=== PATIENT | female | born 1945 | race Two or more races ===

== ENCOUNTER 2020-09-07 22:48 | Inpatient (IN) | payer MEDICARE, MEDICAID ==
[~2020-09-07] VITALS: Ht 165.1 cm; Wt 80.0 kg
[~2020-09-07 22:48] MED LIST: ALBU8.5H8 INH; AMIO200T61 PO; AMIT25TA10 PO; APIX5TAB3 PO; ATOR40TA7 PO; BUDE10.22 INH; BUSP5TAB3 PO; CEPH-572 PO; DOCU100C41 PO; FLUT16SP26; FURO40TA4 PO; GABA-530 PO; HYDR-3965 PO; LACT1CAP26 PO; MELA10TA2 PO; MONT10TA21 PO; PANT-47 PO; POTA10TA21 PO; ROPI1TAB6 PO; ROPI3TAB PO
[2020-09-07 23:44] LABS: BASOPHILS % (AUTO) 0.5 % (0-1); EOSINOPHILS # (AUTO) 0.2 X10'3 (0-0.9); EOSINOPHILS % (AUTO) 2.3 % (0-6); HEMATOCRIT 33.2 % (35.0-45.0); HEMOGLOBIN 10.4 g/dl (12.0-16.0); LYMPHOCYTES # (AUTO) 1.6 X10'3 (1.1-4.8); LYMPHOCYTES % (AUTO) 23.5 % (21-51); MEAN CORPUSCULAR HEMOGLOBIN 23.8 PG (27.0-31.0); MEAN CORPUSCULAR HGB CONC 31.3 g/dL (33.0-36.5); MEAN CORPUSCULAR VOLUME 75.9 FL (78-98); MEAN PLATELET VOLUME 8.7 FL (7.4-10.4); MONOCYTES # (AUTO) 0.8 X10'3 (0-0.9); MONOCYTES % (AUTO) 11.8 % (2-12); NEUTROPHILS # (AUTO) 4.2 X10'3 (1.8-7.7); NEUTROPHILS % (AUTO) 61.9 % (42-75); PLATELET COUNT 218 X10'3 (140-440); RED BLOOD COUNT 4.37 X10'6 (4.20-5.60); RED CELL DISTRIBUTION WIDTH 19.7 % (11.5-14.5); WHITE BLOOD COUNT 6.8 X10'3 (4.5-11.0)
[2020-09-08 00:15] LABS: ALANINE AMINOTRANSFERASE 28 U/L (12-78); ALBUMIN 3.9 G/DL (3.4-5.0); ALKALINE PHOSPHATASE 98 IU/L (46-116); ANION GAP 12 (8-16); ASPARTATE AMINO TRANSFERASE 27 U/L (10-37); BILIRUBIN,TOTAL 0.3 MG/DL (0.1-1.0); BLOOD UREA NITROGEN 56 MG/DL (7-18); BUN/CREATININE RATIO 21.9 (6.6-38.0); CALCIUM 9.6 MG/DL (8.5-10.1); CHLORIDE 106 MMOL/L (99-107); CREATININE 2.56 MG/DL (0.40-0.90); GLUCOSE 121 MG/DL (70-104); POTASSIUM 3.9 MMOL/L (3.5-5.1); SODIUM 142 MMOL/L (135-145); TOTAL CARBON DIOXIDE 24.1 MMOL/L (24-32); TOTAL PROTEIN 7.8 G/DL (6.4-8.2); eGFR 18 ML/MIN
[2020-09-08 00:29] LABS: ANISOCYTOSIS 2+; ELLIPTOCYTES FEW; MICROCYTOSIS 1+; PLATELET ESTIMATE NORMAL; POLYCHROMASIA FEW
[2020-09-08] MEDS ORDERED: MONT10TA21 PO (00:41)
[2020-09-08] MEDS ORDERED: AMIT-189 PO (00:41)
[2020-09-08] MEDS ORDERED: POTA8CAP20 PO (00:41)
[2020-09-08] MEDS ORDERED: BUDE10.2 INH (00:41)
[2020-09-08] MEDS ORDERED: APIX2.5T PO (00:41)
[2020-09-08] MEDS ORDERED: SENN8.6T19 PO (00:41)
[2020-09-08] MEDS ORDERED: ATOR40TA PO (00:41)
[2020-09-08] MEDS ORDERED: ROPI1TAB6 PO (00:41)
[2020-09-08] MEDS ORDERED: ALBU8.5H8 IH (00:41)
[2020-09-08] MEDS ORDERED: FURO-149 PO (00:41)
[2020-09-08] MEDS ORDERED: MELA10TA2 PO (00:41)
[2020-09-08] MEDS ORDERED: PANT-47 PO (00:41)
[2020-09-08] MEDS ORDERED: BUSP5TAB3 PO (00:41)
[2020-09-08] MEDS ORDERED: IRBE150T51 PO (00:41)
[2020-09-08] MEDS ORDERED: AMIO200T61 PO (00:41)
[2020-09-08] MEDS ORDERED: CEPH250T PO (00:43)
[2020-09-08] MEDS ORDERED: potassium Cl 40MEQ/1/2NS 520ml 520 ML IV PRN ×2 (00:50)
[2020-09-08] MEDS ORDERED: magnesium hydroxide 30ml (MOM) UD suspension PO PRN (00:50)
[2020-09-08] MEDS ORDERED: magnesium 2GM in 50ml NS 50 ML IV PRN (00:50)
[2020-09-08] MEDS ORDERED: magnesium 4gm in 100ml NS 100 ML IV PRN (00:50)
[2020-09-08] MEDS ORDERED: magnesium Cl slow-release 64mg tablet PO PRN (00:50)
[2020-09-08] MEDS ORDERED: potassium Cl 20 mEq SR tablet PO PRN ×2 (00:50)
[2020-09-08] MEDS ORDERED: mag hydrox/Alum hydrox/simeth 30ml oral suspension PO PRN (00:50)
[2020-09-08] MEDS ORDERED: albuterol 2.5 MG/3 ML nebule NEB PRN (01:00)
[2020-09-08] MEDS: morphine 2 MG/ML inj. syringe IV PRN ×3 (01:26→18:00)
[2020-09-08] MEDS: ondansetron/PF 4mg/2ml inj IV PRN ×3 (01:27→18:35)
[2020-09-08 02:35] LABS: HEMOGLOBIN A1C 5.8 % (4.5-6.2)
[2020-09-08] MEDS: albuterol 2.5 MG/3 ML nebule NEB SCH ×4 (03:00→20:10)
[2020-09-08] MEDS ORDERED: nitroGLYCERIN 1gm ointment UD TP ONE (03:05)
[2020-09-08] MEDS: K and/or MAG REPLACEMENT MC SCH ×2 (07:30→20:00)
[2020-09-08] MEDS: budesonide 0.5mg/2ml UD nebule IH SCH ×2 (07:35→20:10)
[2020-09-08] MEDS: atorvastatin 20mg tablet PO SCH (07:44)
[2020-09-08] MEDS: pantoprazole 40mg Tablet.DR PO SCH (07:44)
[2020-09-08] MEDS: sennosides 8.6mg tablet PO SCH (07:45)
[2020-09-08] MEDS: losartan 50mg tablet PO SCH (07:45)
[2020-09-08] MEDS: ROPINIRole 1mg tablet PO SCH ×2 (07:45→21:12)
[2020-09-08] MEDS: montelukast 10mg tablet PO SCH (07:45)
[2020-09-08] MEDS: amiodarone 200mg tablet PO SCH (07:45)
[2020-09-08] MEDS: busPIRone 5mg tablet PO SCH ×2 (07:45→21:11)
[2020-09-08] MEDS: furosemide 40mg tablet PO SCH (07:45)
[2020-09-08] MEDS: cephalexin 250mg capsule PO SCH ×2 (07:46→21:12)
[2020-09-08] MEDS: acetaminophen 325mg tablet PO PRN ×2 (07:46→21:22)
[2020-09-08] MEDS ORDERED: heparin, porcine 5000 units/ml vial SQ SCH (08:00)
--- NOTE | 2020-09-08 09:50 | NUR ---
u/s at bedside for echo
[2020-09-08 19:41] VITALS: BP 106/55
[2020-09-08] MEDS: amitriptyline 50mg tablet PO SCH (21:11)
[2020-09-08] MEDS: lactobacillus rhamnosus 10,000 MMU CELLS/CAPSULE PO SCH (21:12)
[2020-09-08] MEDS: Melatonin 3mg tablet PO SCH (21:12)
[2020-09-08 22:00] VITALS: BP 97/47
--- NOTE | 2020-09-08 22:37 | NUR ---
PATIENT STATES THAT THEY DO NOT WANT TO GO OVER HER FULL ADMISSION/DART AT THIS TIME . SHE STATES SHE HAS A HEADACHE AND IS WANTING TO REST. TYLENOL TO BE GIVEN AND WILL RE TRY NEXT MORNING
[2020-09-09 02:00] VITALS: BP 97/47
[2020-09-09] MEDS: albuterol 2.5 MG/3 ML nebule NEB SCH ×4 (02:28→20:13)
--- NOTE | 2020-09-09 06:30 | NUR ---
Patient in room U 3026. I have received report from Vlad LAND and had the opportunity to ask questions and assume patient care. Patient resting in bed and in no acute distress.
[2020-09-09 06:33] LABS: BASOPHILS % (AUTO) 0.3 % (0-1); EOSINOPHILS # (AUTO) 0.1 X10'3 (0-0.9); EOSINOPHILS % (AUTO) 1.7 % (0-6); HEMATOCRIT 29.4 % (35.0-45.0); HEMOGLOBIN 9.5 g/dl (12.0-16.0); LYMPHOCYTES % (AUTO) 13.6 % (21-51); MEAN CORPUSCULAR HEMOGLOBIN 24.6 PG (27.0-31.0); MEAN CORPUSCULAR HGB CONC 32.4 g/dL (33.0-36.5); MEAN CORPUSCULAR VOLUME 75.9 FL (78-98); MEAN PLATELET VOLUME 8.8 FL (7.4-10.4); MONOCYTES # (AUTO) 0.7 X10'3 (0-0.9); MONOCYTES % (AUTO) 10.2 % (2-12); NEUTROPHILS # (AUTO) 5.3 X10'3 (1.8-7.7); NEUTROPHILS % (AUTO) 74.2 % (42-75); PLATELET COUNT 183 X10'3 (140-440); RED BLOOD COUNT 3.88 X10'6 (4.20-5.60); RED CELL DISTRIBUTION WIDTH 19.1 % (11.5-14.5); WHITE BLOOD COUNT 7.1 X10'3 (4.5-11.0)
[2020-09-09 07:00] VITALS: BP 112/44
[2020-09-09] MEDS: budesonide 0.5mg/2ml UD nebule IH SCH ×2 (07:04→20:13)
[2020-09-09 07:20] LABS: ALANINE AMINOTRANSFERASE 26 U/L (12-78); ALBUMIN 3.4 G/DL (3.4-5.0); ALBUMIN/GLOBULIN RATIO 0.9 (1.1-1.5); ALKALINE PHOSPHATASE 91 IU/L (46-116); ANION GAP 12 (8-16); ASPARTATE AMINO TRANSFERASE 21 U/L (10-37); BILIRUBIN,TOTAL 0.3 MG/DL (0.1-1.0); BLOOD UREA NITROGEN 60 MG/DL (7-18); BUN/CREATININE RATIO 23.1 (6.6-38.0); CALCIUM 9.1 MG/DL (8.5-10.1); CHLORIDE 106 MMOL/L (99-107); CHOL/HDL RATIO 2.4 (0.00-4.99); CHOLESTEROL 124 MG/DL (0-200); GLUCOSE 120 MG/DL (70-104); HDL CHOLESTEROL 52 MG/DL (35-60); LDL CHOLESTEROL 52 MG/DL (50-100); POTASSIUM 4.1 MMOL/L (3.5-5.1); SODIUM 141 MMOL/L (135-145); TOTAL CARBON DIOXIDE 22.9 MMOL/L (24-32); TOTAL PROTEIN 7.1 G/DL (6.4-8.2); TRIGLYCERIDES 152 MG/DL (20-135); eGFR 18 ML/MIN
[2020-09-09] MEDS: busPIRone 5mg tablet PO SCH ×2 (07:55→20:11)
[2020-09-09] MEDS: amiodarone 200mg tablet PO SCH (07:55)
[2020-09-09] MEDS: cephalexin 250mg capsule PO SCH ×2 (07:56→20:12)
[2020-09-09] MEDS: losartan 50mg tablet PO SCH (07:56)
[2020-09-09] MEDS: lactobacillus rhamnosus 10,000 MMU CELLS/CAPSULE PO SCH ×2 (07:56→20:11)
[2020-09-09] MEDS: ROPINIRole 1mg tablet PO SCH ×2 (07:57→20:11)
[2020-09-09] MEDS: ondansetron/PF 4mg/2ml inj IV PRN ×2 (07:57→18:52)
[2020-09-09] MEDS: atorvastatin 20mg tablet PO SCH (07:57)
[2020-09-09] MEDS: sennosides 8.6mg tablet PO SCH (07:57)
[2020-09-09] MEDS: furosemide 40mg tablet PO SCH (07:57)
[2020-09-09] MEDS: pantoprazole 40mg Tablet.DR PO SCH (07:57)
[2020-09-09] MEDS: montelukast 10mg tablet PO SCH (07:57)
[2020-09-09] MEDS: K and/or MAG REPLACEMENT MC SCH ×2 (08:00→20:00)
[2020-09-09] MEDS: morphine 2 MG/ML inj. syringe IV PRN ×4 (08:07→22:56)
[2020-09-09 09:41] LABS: PLATELET ESTIMATE NORMAL
[2020-09-09 09:42] LABS: ANISOCYTOSIS 2+; ELLIPTOCYTES 1+; LARGE PLATELETS FEW
[2020-09-09 09:43] LABS: MICROCYTOSIS 1+; POLYCHROMASIA 1+; TEAR DROP CELLS FEW
[2020-09-09 11:00] VITALS: BP 121/53
[2020-09-09] MEDS ORDERED: mag hydrox/Alum hydrox/simeth 30ml oral suspension PO PRN (12:10)
[2020-09-09] MEDS ORDERED: regadenoson 0.4mg/5ml syringe IV ONE (12:10)
[2020-09-09] MEDS ORDERED: aminophylline 250mg/10ml inj. IV PRN (12:10)
[2020-09-09] MEDS ORDERED: nitroGLYCERIN 0.4mg SUBLingual tab SL PRN (12:10)
[2020-09-09] MEDS ORDERED: metoprolol tartrate 1mg/ml inj IV PRN (12:10)
[2020-09-09] MEDS ORDERED: proCHLORperazine 10 MG/2 ml inj IV PRN (12:10)
[2020-09-09 15:00] VITALS: BP 100/62
[2020-09-09 18:00] VITALS: BP 112/50
--- NOTE | 2020-09-09 18:07 | NUR ---
Problems reprioritized. Patient report given, questions answered & plan of care reviewed with Vlad LAND.Patient alert, oriented, appropriaten and in no acute distress at this time.
--- NOTE | 2020-09-09 20:05 | NUR ---
PAGER ID: [phone] MESSAGE: [id number] THOMAS MAJOR , STATES LEG PAIN IS 10/10 MORPHINE HAS NOT RELIEVED PAIN. REQUESTED DILADID FOR RELIEVE AT THIS TIME PER PATIENT REQUEST. [id number] SHIRA LAND THANK YOU
--- NOTE | 2020-09-09 20:09 | NUR ---
SPOKE TO DR. BRIGGS IN REGARDS TO PAIN RELIEVE, STATES MORPHINE IS A BETTER CHOICE FOR RELIEVE AT THIS TIME IN REGARDS TO PATIENTS CARDIAC STATUS
[2020-09-09] MEDS: amitriptyline 50mg tablet PO SCH (21:16)
[2020-09-09] MEDS: acetaminophen 325mg tablet PO PRN (21:17)
[2020-09-09] MEDS: Melatonin 3mg tablet PO SCH (21:17)
[2020-09-09] MEDS ORDERED: GABA-530 PO (21:36)
[2020-09-09] MEDS ORDERED: HYDR-3965 PO (21:37)
--- NOTE | 2020-09-09 21:41 | NUR ---
PAGER ID: [phone] MESSAGE: [id number] THOMAS MAJOR . LEG PAIN SEEMS TO PRESIST I SPOKE TO DAUGHTER OF PATIENT, WHO IS THE VARNISH MIXER I WAS ABLE TO UPDATE THE MED REC . PATIENT TAKES BOTH GABAPENTIN AND NORCO FOR NEUROPATHY AND RESTLESS LEGS. SHIRA LAND 1350 THANKS
[2020-09-09 22:00] VITALS: BP 121/45
[2020-09-09] MEDS ORDERED: gabapentin 100mg capsule PO ONE (22:10)
[2020-09-10] VITALS (10 sets, daily range): BP systolic 94–117; BP diastolic 34–49
[2020-09-10] MEDS: albuterol 2.5 MG/3 ML nebule NEB SCH ×3 (03:23→15:43)
[2020-09-10 06:14] LABS: BASOPHILS % (AUTO) 0.4 % (0-1); EOSINOPHILS # (AUTO) 0.2 X10'3 (0-0.9); EOSINOPHILS % (AUTO) 2.6 % (0-6); HEMOGLOBIN 9.5 g/dl (12.0-16.0); LYMPHOCYTES # (AUTO) 0.8 X10'3 (1.1-4.8); MEAN CORPUSCULAR HEMOGLOBIN 24.2 PG (27.0-31.0); MEAN CORPUSCULAR HGB CONC 31.5 g/dL (33.0-36.5); MEAN CORPUSCULAR VOLUME 76.9 FL (78-98); MEAN PLATELET VOLUME 8.7 FL (7.4-10.4); MONOCYTES # (AUTO) 0.6 X10'3 (0-0.9); MONOCYTES % (AUTO) 9.8 % (2-12); NEUTROPHILS # (AUTO) 4.7 X10'3 (1.8-7.7); NEUTROPHILS % (AUTO) 75.2 % (42-75); PLATELET COUNT 157 X10'3 (140-440); RED BLOOD COUNT 3.91 X10'6 (4.20-5.60); RED CELL DISTRIBUTION WIDTH 19.5 % (11.5-14.5); WHITE BLOOD COUNT 6.3 X10'3 (4.5-11.0)
[2020-09-10 06:29] LABS: ALANINE AMINOTRANSFERASE 45 U/L (12-78); ALBUMIN 3.3 G/DL (3.4-5.0); ALBUMIN/GLOBULIN RATIO 0.9 (1.1-1.5); ALKALINE PHOSPHATASE 114 IU/L (46-116); ANION GAP 12 (8-16); ASPARTATE AMINO TRANSFERASE 67 U/L (10-37); BILIRUBIN,TOTAL 0.3 MG/DL (0.1-1.0); BLOOD UREA NITROGEN 57 MG/DL (7-18); BUN/CREATININE RATIO 21.8 (6.6-38.0); CALCIUM 9.1 MG/DL (8.5-10.1); CHLORIDE 105 MMOL/L (99-107); CREATININE 2.62 MG/DL (0.40-0.90); GLUCOSE 109 MG/DL (70-104); POTASSIUM 3.9 MMOL/L (3.5-5.1); SODIUM 138 MMOL/L (135-145); TOTAL CARBON DIOXIDE 20.6 MMOL/L (24-32); TOTAL PROTEIN 6.8 G/DL (6.4-8.2); eGFR 18 ML/MIN
--- NOTE | 2020-09-10 06:38 | NUR ---
Patient in room PCU 3026. I have received report from Vlad LAND and had the opportunity to ask questions and assume patient care. Patient resting in bed in no acute distress.
[2020-09-10] MEDS ORDERED: gabapentin 100mg capsule PO SCH (08:00)
[2020-09-10] MEDS: K and/or MAG REPLACEMENT MC SCH (08:00)
[2020-09-10] MEDS: budesonide 0.5mg/2ml UD nebule IH SCH (08:11)
[2020-09-10] MEDS: losartan 50mg tablet PO SCH (08:12)
[2020-09-10] MEDS: amiodarone 200mg tablet PO SCH (08:12)
[2020-09-10] MEDS: lactobacillus rhamnosus 10,000 MMU CELLS/CAPSULE PO SCH (08:12)
[2020-09-10] MEDS: busPIRone 5mg tablet PO SCH (08:12)
[2020-09-10] MEDS: ROPINIRole 1mg tablet PO SCH (08:13)
[2020-09-10] MEDS: furosemide 40mg tablet PO SCH (08:13)
[2020-09-10] MEDS: cephalexin 250mg capsule PO SCH (08:13)
[2020-09-10] MEDS: atorvastatin 20mg tablet PO SCH (08:13)
[2020-09-10] MEDS: pantoprazole 40mg Tablet.DR PO SCH (08:13)
[2020-09-10] MEDS: sennosides 8.6mg tablet PO SCH (08:13)
[2020-09-10] MEDS: montelukast 10mg tablet PO SCH (08:15)
[2020-09-10] MEDS: morphine 2 MG/ML inj. syringe IV PRN (10:40)
[2020-09-10] MEDS: ondansetron/PF 4mg/2ml inj IV PRN (10:40)
[2020-09-10] MEDS ORDERED: ondansetron 4mg rapidly disintigrating tab PO PRN (11:20)
--- NOTE | 2020-09-10 12:26 | NUR ---
Page Sent promotional table spacer PAGER ID: [phone] MESSAGE: [id number] Brandon. Stress test came back negative no evidence areas of ischemia or infarct , wall motion normal, EF 85% Ilene 1321
--- NOTE | 2020-09-10 15:03 | NUR ---
CT scan faxed to Dr. Christiansen office at request of Dr. Calvert
--- NOTE | 2020-09-10 17:54 | NUR ---
patient is dc to home and picked up by daughter. No new RX. PIV was removed with cannula intact. dc instructions were reviewed with pt and she verbalized understanding. Warning s/s were reviewed with pt. Patient alert, oriented, appropriated and stable at time of dc.
--- NOTE | 2020-09-11 10:50 | NUR ---
CASE MANAGEMENT DISCHARGE FOLLOW UP: Spoke with pt via telephone. Reports that she is "doing okay" but very tired, low energy level, states has some chest pain but feels better know that it isn't her heart; denies dizzines, SOB/difficulty breathing. States unsure if she's had any recent weight loss. Verbalizes understanding of s/sx requiring further evaluation/emergent assistance. Verbalizes understanding of current and stopped medications. Verbalizes compliance with MD discharge instructions. Verbalizes understanding of the importance in making/keeping follow-up appointments, states that her daughter made phone calls to MDs yesterday and they are just waiting for callbacks to set up appts. States no further questions/concerns at this time.
== END 2020-09-10 16:42 | disposition home or self-care (01) | DRG 392 ==
LOC: ER 22:49 → ED HOLD 09-08 00:48 → PCU 3S 09-08 19:00 → OBSVTOIN 09-09 14:30
PROVIDERS: ADMIT Internal Medicine; ATTEND Internal Medicine
PROC: 4A02XM4 Measurement of Cardiac Total Activity, External Approach (ICD-10-PCS; principal; 2020-09-10)
PROC: 3E073KZ Introduction of Other Diagnostic Substance into Coronary Artery, Percutaneous Approach (ICD-10-PCS; 2020-09-10)
DX: K29.70 Gastritis, unspecified, without bleeding (principal); N17.9 Acute kidney failure, unspecified; E78.5 Hyperlipidemia, unspecified; I11.0 Hypertensive heart disease with heart failure; I25.10 Atherosclerotic heart disease of native coronary artery without angina pectoris; I50.9 Heart failure, unspecified; J44.9 Chronic obstructive pulmonary disease, unspecified; D64.9 Anemia, unspecified; Z87.891 Personal history of nicotine dependence; Z95.2 Presence of prosthetic heart valve
CPT/HCPCS: 36415; 71045; 71250; 78452; 80053; 80061; 83036; 83735; 83880; 84484; 85008; 85025; 87081; 93005; 93017; 93306; 93308; 94640; 94760; 96374; 96375; 96376; 99285; A9500; G0378; J0780; J2270; J2405; J2785; J7626

== ENCOUNTER 2020-12-09 08:06 | Emergency (ER) | payer MEDICARE, MEDICAID ==
[~2020-12-09] VITALS: Ht 162.6 cm; Wt 82.0 kg
[~2020-12-09 08:06] MED LIST changes: +ALBU8.5H8 IH; +AMIT-189 PO; +APIX2.5T PO; +ATOR40TA PO; +BUDE10.2 INH; -CEPH-572 PO; +FURO-149 PO; +IRBE150T51 PO; +POTA8CAP20 PO; +SENN8.6T19 PO
[2020-12-09] MEDS ORDERED: normal saline 1000ML IV soln IV ONE (08:15)
[2020-12-09] MEDS ORDERED: CefTRIAXone 2gm/D5W 50ml BAG 50 ML IV ONE (08:15)
[2020-12-09] MEDS ORDERED: naloxone 0.4 mg/ml inj IV ONE (08:30)
[2020-12-09 09:10] LABS: BASOPHILS % (AUTO) 0.5 % (0-1); EOSINOPHILS # (AUTO) 0.2 X10'3 (0-0.9); EOSINOPHILS % (AUTO) 2.9 % (0-6); HEMATOCRIT 26.9 % (35.0-45.0); HEMOGLOBIN 8.1 g/dl (12.0-16.0); LYMPHOCYTES % (AUTO) 13.2 % (21-51); MEAN CORPUSCULAR HEMOGLOBIN 21.8 PG (27.0-31.0); MEAN CORPUSCULAR HGB CONC 30.2 g/dL (33.0-36.5); MEAN CORPUSCULAR VOLUME 72.2 FL (78-98); MEAN PLATELET VOLUME 8.5 FL (7.4-10.4); MONOCYTES # (AUTO) 0.8 X10'3 (0-0.9); NEUTROPHILS # (AUTO) 5.5 X10'3 (1.8-7.7); NEUTROPHILS % (AUTO) 73.4 % (42-75); PLATELET COUNT 226 X10'3 (140-440); RED BLOOD COUNT 3.72 X10'6 (4.20-5.60); RED CELL DISTRIBUTION WIDTH 19.8 % (11.5-14.5); WHITE BLOOD COUNT 7.5 X10'3 (4.5-11.0)
[2020-12-09 09:24] LABS: ALANINE AMINOTRANSFERASE 18 U/L (12-78); ALBUMIN 3.3 G/DL (3.4-5.0); ALBUMIN/GLOBULIN RATIO 0.9 (1.1-1.5); ALKALINE PHOSPHATASE 92 IU/L (46-116); ANION GAP 11 (8-16); ASPARTATE AMINO TRANSFERASE 25 U/L (10-37); BILIRUBIN,TOTAL 0.3 MG/DL (0.1-1.0); BLOOD UREA NITROGEN 61 MG/DL (7-18); BUN/CREATININE RATIO 24.3 (6.6-38.0); CALCIUM 8.4 MG/DL (8.5-10.1); CHLORIDE 108 MMOL/L (99-107); CREATININE 2.51 MG/DL (0.40-0.90); GLUCOSE 125 MG/DL (70-104); MAGNESIUM 2.1 MG/DL (1.5-2.4); POTASSIUM 4.1 MMOL/L (3.5-5.1); SODIUM 141 MMOL/L (135-145); TOTAL CARBON DIOXIDE 21.7 MMOL/L (24-32); TOTAL PROTEIN 6.9 G/DL (6.4-8.2); eGFR 19 ML/MIN
[2020-12-09 10:23] LABS: ANISOCYTOSIS 2+; HYPOCHROMASIA 1+; MICROCYTOSIS 1+; PLATELET ESTIMATE NORMAL
[2020-12-09 10:25] LABS: ELLIPTOCYTES 2+; POLYCHROMASIA FEW; TEAR DROP CELLS 1+
[2020-12-09 10:26] LABS: SCHISTOCYTES FEW
[2020-12-09 10:44] LABS: CLARITY,URINE CLEAR (Clear); COLOR,URINE STRAW (Yellow); GLUCOSE, URINE NEGATIVE (Neg); KETONES,URINE NEGATIVE (Neg); LEUKOCYTE ESTERASE ,URINE TRACE (Neg); NITRITES, URINE NEGATIVE (Neg); OCCULT BLOOD,URINE TRACE-INTACT (Neg); PROTEIN,URINE NEGATIVE (Neg); UROBILINOGEN,URINE 0.2 E.U/dL (0.2-1.0)
[2020-12-09 10:51] LABS: UA COLLECTION TYPE VOIDED
[2020-12-09 10:52] LABS: HYALINE CASTS 0-3 /LPF (NEGATIVE); MUCUS STRANDS NONE SEEN /LPF (Neg); RBC,URINE 0-2 /HPF (0-2); SQUAMOUS EPITHELIAL CELL,UR FEW /LPF (FEW); WBC,URINE 0-4 /HPF (0-4)
[2020-12-09 10:53] LABS: BACTERIA,URINE FEW /HPF (Neg)
[2020-12-09 13:58] VITALS: BP 123/77
== END 2020-12-09 13:50 | disposition home or self-care (01) ==
LOC: ER 08:07
DX: R41.82 Altered mental status, unspecified (principal); I95.9 Hypotension, unspecified; I48.91 Unspecified atrial fibrillation; I25.10 Atherosclerotic heart disease of native coronary artery without angina pectoris; I15.0 Renovascular hypertension; I11.0 Hypertensive heart disease with heart failure; J44.9 Chronic obstructive pulmonary disease, unspecified; G25.81 Restless legs syndrome; Z90.49 Acquired absence of other specified parts of digestive tract; Z95.5 Presence of coronary angioplasty implant and graft; Z98.890 Other specified postprocedural states; Z79.899 Other long term (current) drug therapy; Z88.8 Allergy status to other drugs, medicaments and biological substances
CPT/HCPCS: 36415; 70450; 71045; 73630; 80053; 81001; 83605; 83735; 84145; 85008; 85025; 87040; 87077; 87088; 87186; 93005; 96361; 96365; 96375; 99285; J0696; J2310; J7030

== ENCOUNTER 2021-01-22 11:34 | Emergency (ER) | payer MEDICARE, MEDICAID ==
[~2021-01-22] VITALS: Ht 165.1 cm; Wt 79.5 kg
[~2021-01-22 11:34] MED LIST changes: -ALBU8.5H8 INH; -AMIT-189 PO; -APIX2.5T PO; -ATOR40TA PO; -BUDE10.22 INH; -FURO-149 PO; -POTA10TA21 PO; -SENN8.6T19 PO
[2021-01-22 12:27] LABS: BASOPHILS % (AUTO) 0.4 % (0-1); EOSINOPHILS # (AUTO) 0.1 X10'3 (0-0.9); EOSINOPHILS % (AUTO) 2.3 % (0-6); HEMATOCRIT 30.2 % (35.0-45.0); HEMOGLOBIN 9.3 g/dl (12.0-16.0); LYMPHOCYTES # (AUTO) 0.9 X10'3 (1.1-4.8); LYMPHOCYTES % (AUTO) 14.1 % (21-51); MEAN CORPUSCULAR HEMOGLOBIN 22.2 PG (27.0-31.0); MEAN CORPUSCULAR HGB CONC 30.7 g/dL (33.0-36.5); MEAN CORPUSCULAR VOLUME 72.4 FL (78-98); MEAN PLATELET VOLUME 8.6 FL (7.4-10.4); MONOCYTES # (AUTO) 0.6 X10'3 (0-0.9); MONOCYTES % (AUTO) 9.8 % (2-12); NEUTROPHILS # (AUTO) 4.7 X10'3 (1.8-7.7); NEUTROPHILS % (AUTO) 73.4 % (42-75); PLATELET COUNT 236 X10'3 (140-440); RED BLOOD COUNT 4.17 X10'6 (4.20-5.60); RED CELL DISTRIBUTION WIDTH 22.5 % (11.5-14.5); WHITE BLOOD COUNT 6.4 X10'3 (4.5-11.0)
[2021-01-22 12:41] LABS: ALANINE AMINOTRANSFERASE 20 U/L (12-78); ALBUMIN 3.8 G/DL (3.4-5.0); ALKALINE PHOSPHATASE 114 IU/L (46-116); ANION GAP 11 (8-16); ASPARTATE AMINO TRANSFERASE 18 U/L (10-37); BILIRUBIN,TOTAL 0.3 MG/DL (0.1-1.0); BLOOD UREA NITROGEN 64 MG/DL (7-18); BUN/CREATININE RATIO 27.5 (6.6-38.0); CALCIUM 9.2 MG/DL (8.5-10.1); CHLORIDE 107 MMOL/L (99-107); CREATININE 2.33 MG/DL (0.40-0.90); GLUCOSE 124 MG/DL (70-104); POTASSIUM 5.1 MMOL/L (3.5-5.1); SODIUM 142 MMOL/L (135-145); TOTAL CARBON DIOXIDE 24.1 MMOL/L (24-32); TOTAL PROTEIN 7.5 G/DL (6.4-8.2); eGFR 20 ML/MIN
[2021-01-22 12:50] LABS: ANISOCYTOSIS 3+; MICROCYTOSIS 1+; PLATELET ESTIMATE NORMAL
[2021-01-22 12:51] LABS: ELLIPTOCYTES 1+; POLYCHROMASIA 1+; TEAR DROP CELLS FEW
[2021-01-22 14:05] VITALS: BP 137/67
== END 2021-01-22 14:07 | disposition home or self-care (01) ==
LOC: ER 11:35
DX: D64.9 Anemia, unspecified (principal); R06.02 Shortness of breath; R10.10 Upper abdominal pain, unspecified; Q89.8 Other specified congenital malformations; I50.9 Heart failure, unspecified; I13.0 Hypertensive heart and chronic kidney disease with heart failure and stage 1 through stage 4 chronic kidney disease, or unspecified chronic kidney disease; N18.9 Chronic kidney disease, unspecified; I48.91 Unspecified atrial fibrillation; I25.10 Atherosclerotic heart disease of native coronary artery without angina pectoris; J44.9 Chronic obstructive pulmonary disease, unspecified; Z90.89 Acquired absence of other organs; Z98.890 Other specified postprocedural states; Z90.49 Acquired absence of other specified parts of digestive tract; Z88.8 Allergy status to other drugs, medicaments and biological substances; Z79.899 Other long term (current) drug therapy
CPT/HCPCS: 36415; 80053; 85008; 85025; 86870; 86885; 86900; 86901; 86902; 86905; 93005; 99284

== ENCOUNTER → 2021-02-17 | Emergency (ER) | payer MEDICARE, MEDICAID ==
[~2021-02-17] VITALS: Ht 167.6 cm; Wt 75.0 kg
[~2021-02-17] MED LIST changes: +LORA-268 PO; +LORazepam 0.5 MG tablet PO STA; +PROP10TA10 PO; +propranolol 10mg tablet PO ONE
[2021-02-17 19:34] VITALS: BP 156/70
[2021-02-17 20:40] LABS: ALANINE AMINOTRANSFERASE 24 U/L (12-78); ALBUMIN/GLOBULIN RATIO 1.2 (1.1-1.5); ALKALINE PHOSPHATASE 114 IU/L (46-116); ANION GAP 14 (8-16); ASPARTATE AMINO TRANSFERASE 22 U/L (10-37); BILIRUBIN,TOTAL 0.2 MG/DL (0.1-1.0); BLOOD UREA NITROGEN 63 MG/DL (7-18); BUN/CREATININE RATIO 25.8 (6.6-38.0); CHLORIDE 105 MMOL/L (99-107); CREATININE 2.44 MG/DL (0.40-0.90); GLUCOSE 92 MG/DL (70-104); POTASSIUM 4.2 MMOL/L (3.5-5.1); SODIUM 142 MMOL/L (135-145); TOTAL CARBON DIOXIDE 22.8 MMOL/L (24-32); TOTAL PROTEIN 7.4 G/DL (6.4-8.2); eGFR 19 ML/MIN
[2021-02-17 20:41] LABS: BASOPHILS % (AUTO) 0.6 % (0-1); EOSINOPHILS # (AUTO) 0.1 X10'3 (0-0.9); EOSINOPHILS % (AUTO) 1.7 % (0-6); HEMATOCRIT 32.4 % (35.0-45.0); HEMOGLOBIN 10.1 g/dl (12.0-16.0); LYMPHOCYTES # (AUTO) 1.1 X10'3 (1.1-4.8); LYMPHOCYTES % (AUTO) 18.7 % (21-51); MEAN CORPUSCULAR VOLUME 77.2 FL (78-98); MEAN PLATELET VOLUME 8.9 FL (7.4-10.4); MONOCYTES # (AUTO) 0.7 X10'3 (0-0.9); MONOCYTES % (AUTO) 11.5 % (2-12); NEUTROPHILS % (AUTO) 67.5 % (42-75); PLATELET COUNT 175 X10'3 (140-440); RED CELL DISTRIBUTION WIDTH 27.5 % (11.5-14.5)
[2021-02-17 20:43] LABS: TROPONIN I < 0.04 NG/ML (0.0-0.05)
[2021-02-17 21:31] LABS: ANISOCYTOSIS 3+; MICROCYTOSIS 1+; PLATELET ESTIMATE NORMAL
--- NOTE | 2021-02-18 00:02 | NUR ---
PT AMBULATED FROM RESTROOM BACK TO HER EXAM ROOM. APPROX 25 FT USING FWW WITH STANDY ASSIST. PT HAD SLOW BUT STEADY GAIT.
== END | disposition home or self-care (01) ==
LOC: ER 19:28
DX: R25.1 Tremor, unspecified (principal); I48.91 Unspecified atrial fibrillation; I25.10 Atherosclerotic heart disease of native coronary artery without angina pectoris; I11.0 Hypertensive heart disease with heart failure; I50.9 Heart failure, unspecified; J44.9 Chronic obstructive pulmonary disease, unspecified; Z90.49 Acquired absence of other specified parts of digestive tract; Z95.5 Presence of coronary angioplasty implant and graft; Z90.2 Acquired absence of lung [part of]; Z88.8 Allergy status to other drugs, medicaments and biological substances; Z79.899 Other long term (current) drug therapy; Z79.01 Long term (current) use of anticoagulants; Z99.81 Dependence on supplemental oxygen
CPT/HCPCS: 36415; 80053; 84484; 85008; 85025; 99283